=== PATIENT | male | born 1945 | race Caucasian/White ===

== ENCOUNTER → 2017-05-02 | Outpatient (CLI) | payer OTHER | LOC: BMCIMAGING 09:45 | PROVIDERS: ATTEND Internal Medicine Cardiovascular Disease | DX: I51.7 Cardiomegaly (principal) ==

== ENCOUNTER → 2018-08-05 | Outpatient (CLI) | payer OTHER ==
[~2018-08-05] MED LIST: IOPAMIDOL (ISOVUE-300) 100 ML BTL ONE
== END ==
LOC: FIMAGING 11:14
PROVIDERS: ATTEND Dermatology
DX: C43.9 Malignant melanoma of skin, unspecified (principal); R16.0 Hepatomegaly, not elsewhere classified; R91.1 Solitary pulmonary nodule; R59.0 Localized enlarged lymph nodes; I77.810 Thoracic aortic ectasia; R16.1 Splenomegaly, not elsewhere classified
CPT/HCPCS: 70470; 70491; 71260; 74177; Q9967; 82565-PO

== ENCOUNTER 2018-09-29 12:30 | Emergency (ER) | payer OTHER ==
[2018-09-29 12:37] VITALS: BP 117/82
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
== END 2018-09-29 13:26 | disposition home or self-care (01) ==
DX: S20.20XA Contusion of thorax, unspecified, initial encounter (principal); Z79.01 Long term (current) use of anticoagulants; V49.9XXA Car occupant (driver) (passenger) injured in unspecified traffic accident, initial encounter; Y92.410 Unspecified street and highway as the place of occurrence of the external cause; Y93.9 Activity, unspecified; Y99.9 Unspecified external cause status